=== PATIENT | male | born 1950 | race Caucasian/White ===

== ENCOUNTER 2017-05-09 09:40 | Day surgery (SDC) | payer OTHER ==
[~2017-05-09 09:40] MED LIST: LIDOCAINE HCL 1% MPF SOL ONE; PROPOFOL 500 MG/50 ML EMU IV ONE
[2017-05-09 12:33] VITALS: BP 138/80; PULSE 64; RESP 20; TEMP 97.3; O2SAT 96
== END 2017-05-09 12:45 | disposition home or self-care (01) | DRG 379 ==
LOC: SURG 09:40
PROVIDERS: ATTEND Surgery
DX: K62.5 Hemorrhage of anus and rectum (principal); D12.1 Benign neoplasm of appendix; K63.5 Polyp of colon
CPT/HCPCS: 99001; J2001; J2704